=== PATIENT | male | born 1960 | race African-American/Black ===

== ENCOUNTER → 2019-03-03 | Day surgery (SDC) | payer BC ==
[~2019-03-03] MED LIST: ADVIL200 MG PO; ATORVASTATIN CA20 MG PO; CEFTRIAXONE SOD 1 GM/NS 50 ML 50 ML IV ONE; DEXAMETHASONE SOD PHOS INJ 4 MG/ML VIAL ONE; FENTANYL CITRATE/PF 100MCG/2 ML INJ ONE; IBUPROFEN400 MG PO; LIDOCAINE HCL 2% LOCAL INJ 5 ML SDV VIAL INJ ONE; MIDAZOLAM HCL 2 MG/2 ML VIAL ONE; ONDANSETRON HCL INJ 2MG/ML 2ML 2 MG/ML VIAL ONE; PROPOFOL IV EMULSION 10 MG/ML 20 ML VIAL ONE; SEVOFLURANE INHAL SOLN 250 ML PEN BTL ONE
--- OUTSIDE RECORDS SUMMARY | 2019-03-03 05:38 | XMS REPORT | Clinical Summary ---
Author Author [facility] Address Unknown Phone Unavailable Care Team Providers Care Drug Department Worker Name Role Phone Sharpless PCP Unavailable Allergies No Known Allergies Medications End Date Status Medication Sig Dispensed Refills Start Date 05/19/2018 atorvastatin (LIPITOR) 10 Take 1 tablet 30 tablet 11 MG tablet (10 mg total) 7 by mouth nightly. 05/19/2018 aspirin 81 MG EC tablet Take 1 tablet 30 tablet 11 (81 mg total) 7 by mouth daily. Active Problems Problem Noted Date Syncope, unspecified syncope type 05/18/2017 Elevated BP without diagnosis of hypertension 05/18/2017 Mixed hyperlipidemia 05/18/2017 Family History Medical History Relation Name Comments Heart disease Father Relation Name Status Comments Father Social History Date Tobacco Use Types Packs/Day Years Used Unknown If Ever Smoked Alcohol Use Drinks/Week oz/Week Comments No Sex Assigned at Date Recorded Not on file Industry Job Start Date Occupation Not on file Not on file Not on file Travel End Travel History Travel Start No recent travel history available. Last Filed Vital Signs Not on file Plan of Treatment Not on file Results Not on fileafter 03/02/2018 Insurance Payer Benefit Subscriber ID Type Phone Address Plan / Group BLUE CROSS/BLUE SHIELD BCBS PPO xxxxxxxxxxxx PPO [phone] [address] [place] [address] CHOICE Advance Directives For more information, please contact: [facility] [address] [place] [phone] Date Inactivated Comments Code Status Date Activated 05/19/2017 8:22 PM Full Code 05/18/2017 7:45 PM This code status was determined by: Patient
--- OUTSIDE RECORDS SUMMARY | 2019-03-03 05:39 | XMS REPORT ---
Author Author [facility] Address Unknown Phone Unavailable Care Team Providers Care Transfer Car Operator Name Role Phone MENDOZA HAND Unavailable Unavailable Problems This patient has no known problems. Allergies, Adverse Reactions, Alerts This patient has no known allergies or adverse reactions. Medications This patient has no known medications. Encounters Start Date/Time End Date/Time Encounter Type Admission Type Attending [facility] Care Facility Care Department Encounter ID 2019-02-11 17:46:00 2019-02-11 17:46:00 Emergency E [facility]NE [facility] [id number] Results Test Description Test Time Test Comments Text Results Atomic Results Result Comments HEMOGLOBIN A1C 2017-05-19 11:57:00 HEMOGLOBIN A1C (BEAKER) (test errn=591) 5.6 % 4.3-6.1 CREATINE KINASE (CK), TOTAL AND [id number] 05:09:00* Test Item Value Reference Range Comments CREATINE KINASE TOTAL (BEAKER) (test locy=470) 199 U/L 29-200 CREATINE KINASE-MB (BEAKER) (test siqe=217) 1.0 ng/mL 0.0-6.6 CREATINE KINASE-MB INDEX (BEAKER) (test hnsp=528) 0.5 % Effective 09/12/2014: CK-MB Reference Range ChangeNew: 0.0-6.6 Previous: 0.0- 4.9CK-MB Reference Range:<6.7 Normal6.7-10.0 Borderline>10.0 Abnormal TROPONIN [id number] 04:23:00* Test Item Value Reference Range Comments TROPONIN I (BEAKER) (test wadj=129) < ng/mL 0.00-0.03 Effective 09/12/2014: Reference Range ChangeNew: 0.00-0.03 Previous 0.00-0.15T roponin I (TnI) levels must be interpreted in the context of the presenting symp toms and the clinical findings. Elevated TnI levels indicate myocardial damage, but are not specific for ischemic heart disease. Elevated TnI levels are seen in patients with other cardiac conditions (including myocarditis and congestive he art failure), and slight TnI elevations occur in patients with other conditions, including sepsis, renal failure, acidosis, acute neurological disease, and pers istent tachyarrhythmia.LIPID [id number] 04:15:00* Test Item Value Reference Range Comments TRIGLYCERIDES (BEAKER) (test hins=320) 113 mg/dL CHOLESTEROL (BEAKER) (test fkuv=567) 179 mg/dL HDL CHOLESTEROL (BEAKER) (test vwjy=555) 37 mg/dL LDL CHOLESTEROL CALCULATED (BEAKER) (test gvpf=729) 119 mg/dL Triglyceride Reference Range: Low Risk <150 Borderline 150-199 High Risk 200-499 Very High Risk >=500Cholesterol Reference Range: Low Risk <200 Borderline 200-239 High Risk >240HDL Cholesterol Reference Range: Low Risk >=60 High Risk <40LDL Cholesterol Reference Range: Optimal <100 Near Optimal 100-129 Borderline 130-159 High 160-189 Very High >=190 BASIC METABOLIC [id number] 04:15:00* Test Item Value Reference Range Comments SODIUM (BEAKER) (test pzpb=681) 140 meq/L 136-145 POTASSIUM (BEAKER) (test rckz=748) 3.7 meq/L 3.5-5.1 CHLORIDE (BEAKER) (test vrtp=722) 107 meq/L 98-107 CO2 (BEAKER) (test bugf=961) 27 meq/L 22-29 BLOOD UREA NITROGEN (BEAKER) (test glfk=169) 15 mg/dL 7-21 CREATININE (BEAKER) (test gzwc=465) 0.86 mg/dL 0.57-1.25 GLUCOSE RANDOM (BEAKER) (test yxjl=216) 104 mg/dL 70-105 CALCIUM (BEAKER) (test buyi=024) 8.7 mg/dL 8.4-10.2 EGFR (BEAKER) (test qfyd=6345) 112 mL/min/1.73 sq m ESTIMATED GFR IS NOT ACCURATE CREATININE CLEARANCE IN PREDICTING GLOMERULAR FILTRATION RATE. ESTIMATED GFR IS NOT APPLICABLE FOR DIALYSIS PATIENTS. CBC W/PLT COUNT & AUTO [id number] 03:55:00* Test Item Value Reference Range Comments WHITE BLOOD CELL COUNT (BEAKER) (test owja=868) 10.4 K/ L 3.5-10.5 RED BLOOD CELL COUNT (BEAKER) (test leya=185) 4.37 M/ L 4.63-6.08 HEMOGLOBIN (BEAKER) (test abbl=345) 13.4 GM/DL 13.7-17.5 HEMATOCRIT (BEAKER) (test ygrk=603) 41.1 % 40.1-51.0 MEAN CORPUSCULAR VOLUME (BEAKER) (test vivc=003) 94.1 fL 79.0-92.2 MEAN CORPUSCULAR HEMOGLOBIN (BEAKER) (test wuhz=277) 30.7 pg 25.7-32.2 MEAN CORPUSCULAR HEMOGLOBIN CONC (BEAKER) (test tssp=037) 32.6 GM/DL 32.3-36.5 RED CELL DISTRIBUTION WIDTH (BEAKER) (test cmnq=211) 14.1 % 11.6-14.4 PLATELET COUNT (BEAKER) (test eexf=121) 241 K/CU MM 150-450 MEAN PLATELET VOLUME (BEAKER) (test mhbj=673) 10.1 fL 9.4-12.4 NUCLEATED RED BLOOD CELLS (BEAKER) (test kwtp=818) 0 /100 WBC 0-0 NEUTROPHILS RELATIVE PERCENT (BEAKER) (test rnzq=524) 60 % LYMPHOCYTES RELATIVE PERCENT (BEAKER) (test ldtq=860) 30 % MONOCYTES RELATIVE PERCENT (BEAKER) (test aknv=209) 8 % EOSINOPHILS RELATIVE PERCENT (BEAKER) (test kewj=820) 1 % BASOPHILS RELATIVE PERCENT (BEAKER) (test szyz=019) 0 % NEUTROPHILS ABSOLUTE COUNT (BEAKER) (test bivn=557) 6.21 K/ L 1.78-5.38 LYMPHOCYTES ABSOLUTE COUNT (BEAKER) (test peop=149) 3.16 K/ L 1.32-3.57 MONOCYTES ABSOLUTE COUNT (BEAKER) (test jcaa=774) 0.85 K/ L 0.30-0.82 EOSINOPHILS ABSOLUTE COUNT (BEAKER) (test yzpb=393) 0.12 K/ L 0.04-0.54 BASOPHILS ABSOLUTE COUNT (BEAKER) (test aauv=585) 0.04 K/ L 0.01-0.08 IMMATURE GRANULOCYTES-RELATIVE PERCENT (BEAKER) (test fknf=0662) 0 % 0-1 URINALYSIS W/ [id number] 00:47:00* Test Item Value Reference Range Comments COLOR (BEAKER) (test lcao=453) Yellow CLARITY (BEAKER) (test vfwh=135) Clear SPECIFIC GRAVITY UA (BEAKER) (test qqsp=854) 1.012 1.001-1.035 PH UA (BEAKER) (test pnlo=250) 6.0 5.0-8.0 PROTEIN UA (BEAKER) (test uxlj=727) Negative Negative GLUCOSE UA (BEAKER) (test catu=289) Negative Negative KETONES UA (BEAKER) (test txsh=005) Negative Negative BILIRUBIN UA (BEAKER) (test ippp=032) Negative Negative BLOOD UA (BEAKER) (test vlpm=571) Negative Negative NITRITE UA (BEAKER) (test zipm=032) Negative Negative LEUKOCYTE ESTERASE UA (BEAKER) (test exvl=983) Negative Negative UROBILINOGEN UA (BEAKER) (test fpyl=875) 0.2 mg/dL 0.2-1.0 RBC UA (BEAKER) (test sewi=344) < /HPF WBC UA (BEAKER) (test zgyo=407) 1 /HPF MUCUS (BEAKER) (test dsbf=7244) Occasional AMORPHOUS CRYSTALS (BEAKER) (test hvho=7157) Rare SOURCE(BEAKER) (test yyzk=4762) Urine, Voided CREATINE KINASE (CK), TOTAL AND [id number] 23:32:00* Test Item Value Reference Range Comments CREATINE KINASE TOTAL (BEAKER) (test olsk=945) 193 U/L 29-200 CREATINE KINASE-MB (BEAKER) (test gusg=070) 1.2 ng/mL 0.0-6.6 CREATINE KINASE-MB INDEX (BEAKER) (test lgbz=507) 0.6 % Effective 09/12/2014: CK-MB Reference Range ChangeNew: 0.0-6.6 Previous: 0.0- 4.9CK-MB Reference Range:<6.7 Normal6.7-10.0 Borderline>10.0 Abnormal TROPONIN [id number] 17:51:00* Test Item Value Reference Range Comments TROPONIN I (BEAKER) (test ckdc=809) 0.02 ng/mL 0.00-0.03 Effective 09/12/2014: Reference Range ChangeNew: 0.00-0.03 Previous 0.00-0.15T roponin I (TnI) levels must be interpreted in the context of the presenting symp toms and the clinical findings. Elevated TnI levels indicate myocardial damage, but are not specific for ischemic heart disease. Elevated TnI levels are seen in patients with other cardiac conditions (including myocarditis and congestive he art failure), and slight TnI elevations occur in patients with other conditions, including sepsis, renal failure, acidosis, acute neurological disease, and pers istent tachyarrhythmia.[id number] 13:36:00* Test Item Value Reference Range Comments SODIUM (BEAKER) (test uchw=468) 141 meq/L 136-145 POTASSIUM (BEAKER) (test olaf=910) 3.7 meq/L 3.5-5.1 Specimen slightly hemolyzed CHLORIDE (BEAKER) (test pctl=783) 107 meq/L 98-107 CO2 (BEAKER) (test gxbf=947) 23 meq/L 22-29 TROPONIN [id number] 13:34:00* Test Item Value Reference Range Comments TROPONIN I (BEAKER) (test dhbt=074) 0.01 ng/mL 0.00-0.03 Effective 09/12/2014: Reference Range ChangeNew: 0.00-0.03 Previous 0.00-0.15T roponin I (TnI) levels must be interpreted in the context of the presenting symp toms and the clinical findings. Elevated TnI levels indicate myocardial damage, but are not specific for ischemic heart disease. Elevated TnI levels are seen in patients with other cardiac conditions (including myocarditis and congestive he art failure), and slight TnI elevations occur in patients with other conditions, including sepsis, renal failure, acidosis, acute neurological disease, and pers istent tachyarrhythmia.[id number] 13:26:00* Test Item Value Reference Range Comments BLOOD UREA NITROGEN (BEAKER) (test vqwo=712) 17 mg/dL 7-21 [id number] 13:26:00* Test Item Value Reference Range Comments CREATININE (BEAKER) (test jabh=905) 1.20 mg/dL 0.57-1.25 Specimen slightly hemolyzed EGFR (BEAKER) (test kvxv=8205) 76 mL/min/1.73 sq m INSUFFICIENT CLINICAL DATA TO CALCULATE ESTIMATED GFR. [id number] 13:26:00* Test Item Value Reference Range Comments GLUCOSE RANDOM (BEAKER) (test geub=978) 109 mg/dL 70-105 Effective 09/12/2014: Reference Range Change-Adult onlyNew: 70-105 Previous: 70-110CBC W/PLT COUNT & AUTO [id number] 13:01:00* Test Item Value Reference Range Comments WHITE BLOOD CELL COUNT (BEAKER) (test himj=991) 11.7 K/ L 3.5-10.5 RED BLOOD CELL COUNT (BEAKER) (test qrep=271) 4.72 M/ L 4.63-6.08 HEMOGLOBIN (BEAKER) (test saji=700) 14.6 GM/DL 13.7-17.5 HEMATOCRIT (BEAKER) (test bsqy=973) 44.9 % 40.1-51.0 MEAN CORPUSCULAR VOLUME (BEAKER) (test qgcw=670) 95.1 fL 79.0-92.2 MEAN CORPUSCULAR HEMOGLOBIN (BEAKER) (test tpqs=963) 30.9 pg 25.7-32.2 MEAN CORPUSCULAR HEMOGLOBIN CONC (BEAKER) (test unvh=049) 32.5 GM/DL 32.3-36.5 RED CELL DISTRIBUTION WIDTH (BEAKER) (test vrfo=184) 13.8 % 11.6-14.4 PLATELET COUNT (BEAKER) (test ugdx=662) 245 K/CU MM 150-450 MEAN PLATELET VOLUME (BEAKER) (test ecqd=331) 10.4 fL 9.4-12.4 NUCLEATED RED BLOOD CELLS (BEAKER) (test zovx=303) 0 /100 WBC 0-0 NEUTROPHILS RELATIVE PERCENT (BEAKER) (test uktz=262) 77 % LYMPHOCYTES RELATIVE PERCENT (BEAKER) (test nhxd=495) 16 % MONOCYTES RELATIVE PERCENT (BEAKER) (test ksed=794) 6 % EOSINOPHILS RELATIVE PERCENT (BEAKER) (test smpy=386) 0 % BASOPHILS RELATIVE PERCENT (BEAKER) (test kghx=167) 0 % NEUTROPHILS ABSOLUTE COUNT (BEAKER) (test mvhc=569) 9.02 K/ L 1.78-5.38 LYMPHOCYTES ABSOLUTE COUNT (BEAKER) (test smtg=882) 1.89 K/ L 1.32-3.57 MONOCYTES ABSOLUTE COUNT (BEAKER) (test pnec=568) 0.69 K/ L 0.30-0.82 EOSINOPHILS ABSOLUTE COUNT (BEAKER) (test iwtv=860) 0.05 K/ L 0.04-0.54 BASOPHILS ABSOLUTE COUNT (BEAKER) (test qsgh=238) 0.03 K/ L 0.01-0.08 IMMATURE GRANULOCYTES-RELATIVE PERCENT (BEAKER) (test calg=5810) 0 % 0-1
[2019-03-03 07:33] LABS: BASOPHILS # (AUTO) 0.1 (0.0-0.1); BASOPHILS % 0.6 % (0.0-1.0); EOSINOPHILS # (AUTO) 0.2 (0.0-0.4); EOSINOPHILS % 2.1 % (0.0-6.0); HEMATOCRIT 48.1 % (38.2-49.6); HEMOGLOBIN 15.7 g/dL (14.0-18.0); LYMPHOCYTES # (AUTO) 3.5 (1.0-3.2); LYMPHOCYTES % 42.3 % (18.0-39.1); MEAN CORPUSCULAR HEMOGLOBIN 31.2 pg (28-32); MEAN CORPUSCULAR HGB CONC 32.6 g/dL (31-35); MEAN CORPUSCULAR VOLUME 95.4 fL (81-99); MONOCYTES # (AUTO) 0.7 (0.2-0.8); MONOCYTES % 8.6 % (4.4-11.3); NEUTROPHILS # (AUTO) 3.8 (2.1-6.9); PLATELET COUNT 261 x10e3/uL (140-360); RED BLOOD COUNT 5.04 x10e6/uL (4.3-5.7); RED CELL DISTRIBUTION WIDTH 13.7 % (11.7-14.4)
[2019-03-03 07:47] LABS: ANION GAP 11.9 mmol/L (8-16); BLOOD UREA NITROGEN 17 mg/dL (7-26); BUN/CREATININE RATIO 20 (6-25); CALCIUM 9.9 mg/dL (8.4-10.2); CARBON DIOXIDE 27 mmol/L (22-29); CHLORIDE 102 mmol/L (98-107); CREATININE, SERUM 0.87 mg/dL (0.72-1.25); EST GLOMERULAR FILTRATION RATE > 60 ML/MIN (60-); GLUCOSE 91 mg/dL (74-118); POTASSIUM 3.9 mmol/L (3.5-5.1); SODIUM 137 mmol/L (136-145)
--- NOTE | 2019-03-03 08:02 | Diagnostic Imaging Report ---
EXAMINATION: CHEST 2 VIEWS INDICATION: Preoperative radiographs. COMPARISON: None FINDINGS: TUBES and LINES: None. LUNGS: Lungs are well inflated. Lungs are clear. There is no evidence of pneumonia or pulmonary edema. PLEURA: No pleural effusion or pneumothorax. There is eventration of the left hemidiaphragm.. HEART AND MEDIASTINUM: The cardiomediastinal silhouette is unremarkable. BONES AND SOFT TISSUES: No acute osseous abnormality. UPPER ABDOMEN: No free air under the diaphragm. IMPRESSION: No acute radiographic abnormality. Signed by: Dr. Jeni Platt MD on 03/03/2019 7:59 AM
[2019-03-03 10:00] VITALS: BP 148/87
--- NOTE | 2019-03-20 11:34 | Operative Report ---
DATE OF PROCEDURE: 03/03/2019 SURGEON: Nixon Finn MD PREOPERATIVE DIAGNOSES: Elevated PSA and abnormal rectal examination. POSTOPERATIVE DIAGNOSES: Elevated PSA and abnormal rectal examination. OPERATIVE PROCEDURE PERFORMED: Transrectal ultrasound and biopsy of the prostate. ANESTHESIA: TIVA. ESTIMATED BLOOD LOSS: Minimal. INDICATIONS: Mr. Hu Muñiz is a 58-year-old black man with a history of kidney disease, who has had a rising PSA. He also has moderate induration of his gland noted throughout. He now presents for repeat biopsy after prior biopsy less than a year ago was negative. PROCEDURE IN DETAIL: The patient was brought into the operating room, placed in supine position and after administration of IV sedation was placed in the left lateral decubitus position and prepped and draped in the usual sterile fashion. Transrectal ultrasonography of the prostate was performed. The prostate revealed midgland hypoechoic lesions bilaterally and the gland 80 mL in volume. There was no obvious extracapsular extension. A total of 12 biopsies were taken following the usual prostate mass from both the right and the left side, base, mid, and apex of the gland laterally and medially. These were sent to pathology as 12 separate specimens. There was minimal bleeding noted at the end of the procedure. The patient was cleaned and returned to a supine position. He was transferred to a bed and taken to the postanesthesia care unit in good condition. Of note, the needle and instrument count were correct at the conclusion of the case. Nixon Finn MD HLW/MODL /[id number]
== END | disposition home or self-care (01) ==
LOC: OR 05:36
PROVIDERS: ATTEND Urology
DX: R97.20 Elevated prostate specific antigen [PSA] (principal); N42.89 Other specified disorders of prostate; N20.1 Calculus of ureter; Z87.891 Personal history of nicotine dependence; Z84.1 Family history of disorders of kidney and ureter
CPT/HCPCS: 36415; 55700; 71046; 80048; 85025; 93005; J0696; J1100; J2001; J2250; J2405; J2704; 50590